=== PATIENT | female | born 1945 | race Caucasian/White ===

== ENCOUNTER → 2017-06-20 15:50 | Outpatient (CLI) | payer MEDICARE, OTHER | END | disposition home or self-care (01) | LOC: D.MRI 15:50 | DX: M25.561 Pain in right knee (principal) ==

== ENCOUNTER 2017-06-27 06:46 | Day surgery (SDC) | payer MEDICARE, OTHER ==
[2017-06-26 13:54] LABS: HEMOGLOBIN 13.5 g/dL (12-16); MCH 29.9 pg (26.0-34.0); MCHC 32.1 g/dL (31.0-37.0); MCV 93.1 fL (80.0-100.0); RBC 4.51 10x6/uL (4.00-5.40); RDW 14.2 % (11.5-14.5); WBC 8.3 10x3/uL (4.8-10.8)
[2017-06-26 14:12] LABS: ANION GAP 10.2 mmol/L (8-16); CALCIUM 8.9 mg/dL (8.5-10.1); CARBON DIOXIDE 30.5 mmol/L (21.0-32.0); CREATININE - SERUM 0.9 mg/dL (0.6-1.3); POTASSIUM - SERUM 3.7 mmol/L (3.5-5.1)
[~2017-06-27] VITALS: Ht 165.1 cm; Wt 75.8 kg
[~2017-06-27 06:46] MED LIST: CELEXA20 MG PO; LANTUS INSULIN10 ML SC; LIPITOR40 MG PO; LISINOPRIL5 MG PO; NAPROSYN500 MG PO; NEURONTIN600 MG PO; NOVOLOG100 U/M1 SC; PEPCID20 MG PO
[2017-06-27 09:21] VITALS: BP 152/65; Ht 165.1 cm; Wt 75.8 kg
[2017-06-27] MEDS ORDERED: BAYER CHEWABLE81 MG PO (09:21)
[2017-06-27] MEDS ORDERED: NUCYNTA50 MG PO (14:46)
--- NOTE | 2017-06-27 14:52 | NUR ---
RECEVIEVED PT FROM OR WITH THOMAS WRAP TO RT KNEE AND ARCHANA BRYANT.
--- NOTE | 2017-06-27 19:32 | NUR ---
1600 IV DC WITH CATHER TIP INTACT
--- NOTE | 2017-06-30 08:17 | OP ---
PATIENT NAME: GEOVANNY MITCHELL MEDICAL RECORD: [id number] :47 LOCATION:[facility] ADMISSION DATE: SURGEON: VAN WANG DO DATE OF OPERATION: 06/27/2017 PROCEDURE PERFORMED: Right knee arthroscopy with partial medial and partial lateral meniscectomies as well as patella abrasion chondroplasty, medial femoral condyle chondroplasty. PREOPERATIVE DIAGNOSES: Right knee pain with medial and lateral meniscal tears and chondromalacia. POSTOPERATIVE DIAGNOSES: Right knee pain with medial and lateral meniscal tears and chondromalacia as well as medial femoral condyle chondromalacia and patellar chondromalacia grade II. INDICATIONS: Ms. Mitchell is a 72-year-old female, who presented to my office some time ago complaining of continued right knee pain. We attempted an injection. She called back a week later and said that did not help and we ordered an MRI. She had symptoms of catching and locking, especially going up and down stairs and these did not get better. An MRI was ordered, which showed meniscal tears and some degenerative joint disease. We had a long discussion with her in the office explaining that due to her degenerative joint disease or osteoarthritis and the scope may not help her completely, but due to her symptoms, she said she would like to try to see if she can get some improvement from it. After this, the patient was consented for the surgery. SURGEON: Van Wang DO. ESTATE PLANNING ATTORNEY: Enriqueta Kelly, advanced nurse practitioner. DESCRIPTION OF PROCEDURE: The patient was taken to the operative suite, placed in supine position, was given general anesthetic. A timeout was performed indicating the correct site, side and the patient and she was given a gram of Ancef preoperatively. She is then prepped and draped in sterile fashion and the portal sites were injected with 4 mL of 0.5% Marcaine with epinephrine on the medial and lateral portals, being 8 mL total. The lateral portal was then established first with an 11-blade scalpel entering the joint, the trocar was placed into the suprapatellar pouch and then camera was placed into the suprapatellar pouch as well as some loose bodies were seen there, likely cartilage from the patella. The care was then taken down the lateral gutter and no loose bodies seen there. The medial gutter was inspected as well and no loose bodies. The medial compartment was then entered and noted to have some meniscal tear on the posterior third to the middle third of the medial meniscus. Meniscus was probed and seemed to be stable at the posterior horn. The tears were trimmed out and appeared to be degenerative tears and then the chondroplasty was performed on the medial femoral condyle as a grade II chondromalacia was noted at that site. The ACL was then probed and seen to be stable. The probe was then stuck into the posterior knee. Posterior medial and posterior lateral knee and the leg was kept into puzeot-ld-niim position and the lateral compartment was entered with the camera, known have some meniscal fraying and tears on the lateral meniscus and the middle third anterior third of the lateral meniscus. This was trimmed out with a biter and shaver and probed including the posterior horn and seemed to be very stable. Attention was then drawn to the patella. The knee was placed in extended position and the patella OPERATIVE REPORT [id number] GEOVANNY MITCHELL was cleaned up. The loose cartilage was cleaned up with a shaver performing the chondroplasty. The camera was then taken out of the knee and excess fluid was suctioned out of the knee and the portal sites were closed with 4-0 Monocryl in an inverted interrupted fashion. Steri-Strips Adaptic, 4 x 4, ABD, Webril and Morteza wrap were then placed over the knee and a ARCHANA hose was placed up to the knee itself. The patient was awakened in stable condition and taken to PACU for recovery. Her blood loss was minimal. TRANSINT:[id number] Voice Confirmation ID: [id number] DOCUMENT ID: [id number] VAN WANG DO at 0817 CC: [id number] DICTATION DATE: 06/27/17 1457 ALL AROUND PRESSER: 06/27/17 2200 [facility] 06/27/17 [facility] [address] [place] [address]
== END 2017-06-27 16:30 | disposition home or self-care (01) ==
LOC: D.OPS 06:46 → D.PAN 10:00 → D.OPS 16:30
PROVIDERS: Anesthesiology
DX: S83.281A Other tear of lateral meniscus, current injury, right knee, initial encounter (principal); S83.241A Other tear of medial meniscus, current injury, right knee, initial encounter; M22.41 Chondromalacia patellae, right knee; I10 Essential (primary) hypertension; J44.9 Chronic obstructive pulmonary disease, unspecified; E11.9 Type 2 diabetes mellitus without complications; Z01.812 Encounter for preprocedural laboratory examination

== ENCOUNTER → 2017-07-22 08:13 | Outpatient (CLI) | payer MEDICARE, OTHER ==
[2017-06-27 09:21] VITALS: BMI 27.8
[~2017-07-22 08:13] MED LIST changes: +BAYER CHEWABLE81 MG PO; +NUCYNTA50 MG PO
== END | disposition home or self-care (01) ==
LOC: D.CT 08:13
DX: R91.8 Other nonspecific abnormal finding of lung field (principal)

== ENCOUNTER → 2018-09-17 13:56 | Outpatient (CLI) | payer MEDICARE, OTHER ==
[2017-06-27 09:21] VITALS: BMI 27.8
== END | disposition home or self-care (01) ==
LOC: D.CT 13:56
DX: R91.8 Other nonspecific abnormal finding of lung field (principal)

== ENCOUNTER 2018-11-13 05:20 | Day surgery (SDC) | payer MEDICARE, OTHER ==
[2018-11-12 09:33] LABS: HEMATOCRIT 38.2 % (36.0-48.0); HEMOGLOBIN 12.7 g/dL (12-16); MCH 29.8 pg (26.0-34.0); MCHC 33.2 g/dL (31.0-37.0); MCV 89.7 fL (80.0-100.0); MEAN PLATELET VOLUME 9.1 fL (7.4-10.4); RBC 4.26 10x6/uL (4.00-5.40); RDW 14.1 % (11.5-14.5); WBC 6.8 10x3/uL (4.8-10.8)
[2018-11-12 09:38] LABS: CALC OSMOLALITY 291 mosm/kg (275-300); CALCIUM 8.1 mg/dL (8.5-10.1); CARBON DIOXIDE 24.3 mmol/L (21.0-32.0); CHLORIDE - SERUM 108 mmol/L (98-107); CREATININE - SERUM 0.8 mg/dL (0.6-1.3); GLUCOSE 204 mg/dL (74-106); POTASSIUM - SERUM 4.6 mmol/L (3.5-5.1); SODIUM 142 mmol/L (136-145); UREA NITROGEN 21 mg/dL (7-18); eGFR NON AFRICAN AMERICAN 75 mL/min (90-120)
[~2018-11-13] VITALS: Ht 165.1 cm; Wt 73.9 kg
[~2018-11-13 05:20] MED LIST changes: +MERIBIN5 MG PO; +VITAMIN E1000 UNI1 PO
[2018-11-13 06:58] VITALS: BP 148/71; Ht 165.1 cm; Wt 73.9 kg
[2018-11-13] MEDS ORDERED: ULTRAM50 MG PO (10:21)
[2018-11-13] MEDS ORDERED: DURICEF500 MG PO (10:22)
--- NOTE | 2018-11-13 13:58 | OP ---
PATIENT NAME: GEOVANNY MITCHELL SATNAM MEDICAL RECORD: [id number] :47 LOCATION:[facility] ADMISSION DATE: SURGEON: VAN WANG DO DATE OF OPERATION: 11/13/2018 PROCEDURE PERFORMED: Right thumb CMC arthroplasty. PREOPERATIVE DIAGNOSIS: End-stage right thumb CMC arthritis. POSTOPERATIVE DIAGNOSIS: End-stage right thumb CMC arthritis. INDICATIONS: Ms. Mitchell is a 73-year-old female who presented to my office complaining for quite some time a complaint of right thumb pain with pinching and gripping and had positive grind test. She tried injections and bracing for quite some time. This, however, got to the point where it did not help and she was tired of affecting her activities of daily living and wanted something done surgically. I informed her of the risks and benefits of the procedure including damage to the radial sensory nerve, need for further surgery, infection, bleeding and she was okay with that and signed the consent. SURGEON: Van Wang DO TOLL TESTBOARD WORKER: Marcos Sidhu. DESCRIPTION OF PROCEDURE: The patient was taken to the operative suite, laid in supine position. Right upper extremity was prepped and draped in sterile fashion. Prior to prep and drape, she was given 2 grams of Ancef preoperatively. It was then prepped and draped. A timeout was performed and everyone was in agreement with the correct side, site, patient and procedure. The right upper extremity was then exsanguinated with an Esmarch and then the tourniquet was inflated to 250 mmHg and was up for 60 minutes. The incision then began over the thumb CMC on the radial side of the thumb. Careful dissection was made down to the CMC joint. The capsule was then opened and cleared off the trapezium and the proximal part of the metacarpal of the thumb. An incision was then made over the second metacarpal and down to the bone and then soft tissue was protected and then the wire was passed from the second metacarpal to the base of the first metacarpal and then the suture TightRope with the button was passed through that and then tied down. Once we got appropriately tight and tied, the trapezium was removed and x-rays were taken to assure that appropriate spot of the thumb lining up with the other metacarpals and indeed was in good spot. The tourniquet was then let down and bleeding was coagulated at that time and the capsule was closed with 2-0 Vicryl in simple fashion. The skin over that incision was closed with 5-0 Monocryl, first in inverted interrupted and then ran on the skin and the incision over the second metacarpal was closed with 5-0 nylon in a horizontal mattress fashion. The Steri-Strips were placed over the incision over the thumb CMC and then Adaptic, 4 x 4, Webril was placed over the hand and thumb and the patient was placed in a thumb spica splint, secured with 4-inch Morteza wrap. She was awakened and taken to recovery in stable condition. TRANSINT:[id number] Voice Confirmation ID: [id number] DOCUMENT ID: [id number] OPERATIVE REPORT [id number] GEOVANNY MITCHELL MICHAEL D, DO at 1358 CC: [id number] DICTATION DATE: 11/13/18 1027 SPECIALIST WOUND CARE: 11/13/[address] [facility] [address] [place] [address]
== END 2018-11-13 12:50 | disposition home or self-care (01) ==
LOC: D.OPS 05:20 → D.PAN 08:15 → D.OPS 08:15
PROVIDERS: Anesthesiology
DX: M18.11 Unilateral primary osteoarthritis of first carpometacarpal joint, right hand (principal); Z01.812 Encounter for preprocedural laboratory examination

== ENCOUNTER 2019-02-05 07:44 | Day surgery (SDC) | payer MEDICARE, OTHER ==
[~2019-02-05] VITALS: Ht 165.1 cm; Wt 73.9 kg
[~2019-02-05 07:44] MED LIST changes: +DURICEF500 MG PO; +ULTRAM50 MG PO
[2019-02-05 08:14] LABS: HEMATOCRIT 40.2 % (36.0-48.0); HEMOGLOBIN 13.1 g/dL (12-16); MCH 29.1 pg (26.0-34.0); MCHC 32.6 g/dL (31.0-37.0); MCV 89.3 fL (80.0-100.0); MEAN PLATELET VOLUME 10.6 fL (7.4-10.4); RBC 4.5 10x6/uL (4.00-5.40); RDW 14.2 % (11.5-14.5); WBC 7.4 10x3/uL (4.8-10.8)
[2019-02-05 08:23] LABS: ANION GAP 12.7 mmol/L (8-16); CALCIUM 8.5 mg/dL (8.5-10.1); CARBON DIOXIDE 25.8 mmol/L (21.0-32.0); CREATININE - SERUM 0.9 mg/dL (0.6-1.3); POTASSIUM - SERUM 4.5 mmol/L (3.5-5.1)
[2019-02-05] MEDS ORDERED: BASAGLAR K100 UNIT/1 SC (08:29)
[2019-02-05 08:39] VITALS: BP 120/70; Ht 165.1 cm; Wt 73.9 kg
[2019-02-05] MEDS ORDERED: DURICEF500 MG PO (10:26)
--- NOTE | 2019-02-05 12:00 | NUR ---
PATIENT AMBULATING AROUND ROOM WITHOUT UNSTEADINESS OR DIZZINESS. LEFT HAND PIV DC'D WITH TIP INTACT. PATIENT DRESSING IN PERSONAL CLOTHING WITH DAUGHTER'S ASSISTANCE
--- NOTE | 2019-02-05 12:15 | NUR ---
DISCHARGE INSTRUCTIONS REVIEWED WITH PATIENT AND FAMILY. DISCHARGED HOME VIA WHEELCHAIR TO PRIVATE VEHICLE WITH SON
--- NOTE | 2019-02-05 14:24 | OP ---
PATIENT NAME: GEOVANNY MITCHELL APRIL MEDICAL RECORD: [id number] :47 [facility] ADMISSION DATE: SURGEON: VAN WANG DO DATE OF OPERATION: 02/05/2019 PROCEDURE PERFORMED: Right ring and middle A1 gerard release. PREOPERATIVE DIAGNOSIS: Right ring and middle trigger finger. POSTOPERATIVE DIAGNOSIS: Right ring and middle trigger finger. INDICATIONS: Ms. Mitchell is a 73-year-old right hand dominant female who has had triggering in her right ring and middle finger for quite some time. She had an injection a couple months ago, which did help a little, but did not completely help. She is tired of dealing with it and wanted it released. I informed her of the risks and benefits of the procedure including infection, bleeding, damage to nerves and vessels, numbness in the hand. She is okay with that and wanted the surgery done. She signed the consent. SURGEON: Van Wang DO DESCRIPTION OF PROCEDURE: The patient was taken to the operative suite, laid supine position, given general anesthetic, 2 grams Ancef. LMA was placed. The right upper extremity was prepped and draped in sterile fashion with tourniquet above the elbow under the drapes. A time out was performed. Everyone was in agreement of the correct side, site, patient and procedure. The right upper extremity was then exsanguinated with the Esmarch and tourniquet was inflated to 250 mmHg, and was up for 12 minutes. Once the tourniquet was inflated and time-out had been performed, the incision began in the distal palmar crease in line with the middle and ring fingers. Incision was made with 15 blade scalpel and then careful dissection bluntly was made down with a Ragnells first with the ring finger to the A1 gerard. This was released with a goodnews bay blade and then completed more distally with scissors. The flexor tendon was then pulled out through the incision to ensure there was no locking or catching. Then, the same thing was repeated on the middle finger. The A1 gerard was released and then more distally as well. The tourniquet was then let down at 12 minutes and the incision was closed with 5-0 nylon in a horizontal mattress fashion. It was then dressed with Adaptic, 4 x 4s, Kerlix and Coban was lightly wrapped on the hand. She was awakened and taken to recovery in stable condition. BLOOD LOSS: Minimal. COMPLICATIONS: None. TOURNIQUET TIME: 12 minutes. TRANSINT:[id number] Voice Confirmation ID: [id number] DOCUMENT ID: [id number] OPERATIVE REPORT [id number] GEOVANNY MITCHELL MICHAEL D, DO at 1424 CC: [id number] DICTATION DATE: 02/05/19 1029 MISSION ANALYST: 02/05/19 1145 [address] [facility] [id number] [place] [address]
== END 2019-02-05 12:15 | disposition home or self-care (01) ==
LOC: D.OPS 07:44 → D.PAN 09:00 → D.OPS 10:00 → D.PAN 10:35 → D.OPS 12:15
PROVIDERS: Anesthesiology; ATTEND Orthopaedic Surgery
DX: M65.341 Trigger finger, right ring finger (principal); M65.331 Trigger finger, right middle finger; Z01.812 Encounter for preprocedural laboratory examination

== ENCOUNTER 2019-10-15 09:21 | Day surgery (SDC) | payer MEDICARE, OTHER ==
[~2019-10-15] VITALS: Ht 165.1 cm; Wt 79.4 kg
[~2019-10-15 09:21] MED LIST changes: +BASAGLAR K100 UNIT/1 SC
[2019-10-15 09:59] LABS: HEMATOCRIT 42.6 % (36.0-48.0); HEMOGLOBIN 13.7 g/dL (12-16); MCH 29.4 pg (26.0-34.0); MCHC 32.2 g/dL (31.0-37.0); MCV 91.4 fL (80.0-100.0); MEAN PLATELET VOLUME 9.8 fL (7.4-10.4); RBC 4.66 10x6/uL (4.00-5.40); WBC 8.1 10x3/uL (4.8-10.8)
[2019-10-15 10:01] LABS: POTASSIUM - SERUM 4.4 mmol/L (3.5-5.1)
[2019-10-15 10:34] VITALS: BP 131/62; Ht 165.1 cm; Wt 79.4 kg
[2019-10-15 11:06] LABS: CALCIUM 9.1 mg/dL (8.5-10.1); CARBON DIOXIDE 26.4 mmol/L (21.0-32.0); CREATININE - SERUM 0.9 mg/dL (0.6-1.3)
[2019-10-15] MEDS ORDERED: DURICEF500 MG PO (13:09)
[2019-10-15] MEDS ORDERED: ULTRAM50 MG PO (13:09)
--- NOTE | 2019-10-15 15:05 | NUR ---
1452-DISCHARGE CRITERIA MET. REMOVED IV WITH CATH INTACT,DISPOSED INTO SHARPS,COVERED SITE WITH GUAZE,SECURED WITH MEDIPORE TAPE. REVIEWED POST OPERATIVE INSTRUCTIONS AND FOLLOW UP APPOINTMENT. VERBALIZED UNDERSTANDING. DRESSING TO LEFT HAND CDI,CAP REFILL WNL. SKIN WARM TO TOUCH.
--- NOTE | 2019-10-15 15:08 | NUR ---
1455-ESCORTED OUT VIA W/C WITH SON AWAITING TO DRIVE HOME.DISCHARGE PAPERWORK IN HAND
--- NOTE | 2019-10-16 07:23 | OP ---
PATIENT NAME: GEOVANNY MITCHELL SATNAM MEDICAL RECORD: [id number] :47 [facility] ADMISSION DATE: SURGEON: VAN WANG DO DATE OF OPERATION: 10/15/2019 PROCEDURE PERFORMED: Left middle, SMALL, ring and thumb trigger finger release or A1 gerard release. PREOPERATIVE DIAGNOSIS: Left thumb, middle, SMALL and ring trigger finger. POSTOPERATIVE DIAGNOSIS: Left thumb, middle, SMALL and ring trigger finger. INDICATIONS: Ms. Mitchell is a 74-year-old female who has had this trigger finger for quite some time. She is tired dealing with this and has had injections in the past and other ones that did not work and she wanted something done surgically as she did not have great david in an injection. I informed her of the risks including infection, bleeding, damage to nerves and vessels, need for further surgery, continued pain and contracture of the palm. She was aware of those risks and signed the consent. SURGEON: Van Wang DO DESCRIPTION OF PROCEDURE: The patient was taken to the operative suite, laid in supine position, given a gram of Ancef preoperatively and then the patient was sedated and LMA was placed. The left upper extremity was then prepped and draped in sterile fashion. Timeout was performed. Everyone was in agreeance with the correct side, site, patient and procedure. We then began by exsanguinating the left upper extremity with an Esmarch. Tourniquet was inflated to 250 mmHg, was up for 15 minutes. The incision began over the thumb A1 gerard and careful dissection was made down to the A1 gerard and it was released. On showing good release, the flexor tendon of the thumb was pulled out through the incision. The incision was then made at the distal crease of the palm all the way from the middle to the small finger and careful dissection was made down to each of the A1 pulleys and were sequentially released from the middle ring to the small finger with a pickup and scissors, ensuring good release. Dissection was made bluntly after the initial skin incision with a Ragnell. The site was then injected with 0.25% Marcaine with epinephrine 10 mL around that and thumb and the tourniquet was deflated. Any bleeding was coagulated with a pickup and a Bovie. The skin was then closed with 5-0 Monocryl in a horizontal mattress fashion and she was dressed with Adaptic, 4 x 4s, Kerlix and a Coban lightly wrapped on the hand. She was awakened and taken to recovery in stable condition. Blood loss was approximately 20 mL. COMPLICATIONS: None. TRANSINT:[id number] Voice Confirmation ID: [id number] DOCUMENT ID: [id number] OPERATIVE REPORT [id number] GEOVANNY MITCHELL MICHAEL D, DO at 0723 CC: [id number] DICTATION DATE: 10/15/19 1306 SOLUTION COORDINATOR: 10/15/19 1505 [facility] 10/15/19 [facility] [address] [place] [address]
== END 2019-10-15 14:55 | disposition home or self-care (01) ==
LOC: D.OPS 09:21 → D.PAN 11:15 → D.OPS 11:30 → D.PAN 11:30 → D.OPS 14:55
PROVIDERS: Anesthesiology; ATTEND Orthopaedic Surgery
DX: M65.312 Trigger thumb, left thumb (principal); M65.332 Trigger finger, left middle finger; M65.342 Trigger finger, left ring finger; M65.352 Trigger finger, left little finger; J44.9 Chronic obstructive pulmonary disease, unspecified

== ENCOUNTER 2020-01-29 13:46 | Emergency (ER) | payer MEDICARE, OTHER ==
[~2020-01-29] VITALS: Ht 165.1 cm; Wt 78.6 kg
[2020-01-29 13:55] VITALS: Ht 165.1 cm; Wt 78.6 kg
[2020-01-29 14:21] LABS: BASOPHILS 0.3 % (0-2); EOSINOPHILS 0.8 % (0-7); HEMATOCRIT 41.3 % (36.0-48.0); HEMOGLOBIN 13.1 g/dL (12-16); IMMATURE GRANULOCYTES 0.2 % (0-5); LYMPHOCYTES 13.5 % (15-50); MCH 28.9 pg (26.0-34.0); MCHC 31.7 g/dL (31.0-37.0); MCV 91.2 fL (80.0-100.0); MEAN PLATELET VOLUME 9.9 fL (7.4-10.4); MONOCYTES 6.2 % (2-11); PLATELET COUNT 223 10x3/uL (130-400); RBC 4.53 10x6/uL (4.00-5.40); RDW 13.9 % (11.5-14.5); WBC 10.6 10x3/uL (4.8-10.8)
[2020-01-29 14:30] LABS: ANION GAP 13.2 mmol/L (8-16); APTT 30.7 SECONDS (22.8-39.4); CALCIUM 8.8 mg/dL (8.5-10.1); CARBON DIOXIDE 24.1 mmol/L (21.0-32.0); CREATININE - SERUM 1.1 mg/dL (0.6-1.3); INR 1.1 (0.85-1.17); POTASSIUM - SERUM 4.3 mmol/L (3.5-5.1); PROTIME 14.2 SECONDS (11.6-15.0)
[2020-01-29 14:31] LABS: D-DIMER-QUANTITATIVE 2.87 ug/mLFEU (0.20-0.54)
[2020-01-29 14:36] LABS: ALBUMIN 3.4 g/dL (3.4-5.0); BILIRUBIN - TOTAL 0.79 mg/dL (0.2-1.3)
[2020-01-29] MEDS ORDERED: ELIQUIS5 MG PO (15:57)
[2020-01-29 16:08] VITALS: BP 124/84
== END 2020-01-29 16:10 ==
LOC: D.ER 13:46
PROVIDERS: Family Medicine
DX: I82.412 Acute embolism and thrombosis of left femoral vein (principal); E11.40 Type 2 diabetes mellitus with diabetic neuropathy, unspecified; Z79.4 Long term (current) use of insulin; I10 Essential (primary) hypertension; J44.9 Chronic obstructive pulmonary disease, unspecified

== ENCOUNTER → 2020-07-11 10:26 | Outpatient (CLI) | payer MEDICARE, OTHER ==
[2020-01-29 13:55] VITALS: BMI 28.8
[~2020-07-11 10:26] MED LIST changes: +ELIQUIS5 MG PO
[2020-07-11 12:27] LABS: BASOPHILS 0.4 % (0-2); EOSINOPHILS 1.2 % (0-7); HEMATOCRIT 40.8 % (36.0-48.0); HEMOGLOBIN 12.9 g/dL (12-16); IMMATURE GRANULOCYTES 0.1 % (0-5); LYMPHOCYTES 25.4 % (15-50); MCH 28.5 pg (26.0-34.0); MCHC 31.6 g/dL (31.0-37.0); MCV 90.1 fL (80.0-100.0); MEAN PLATELET VOLUME 10.7 fL (7.4-10.4); MONOCYTES 4.4 % (2-11); NEUTROPHILS 68.5 % (40-80); PLATELET COUNT 235 10x3/uL (130-400); RBC 4.53 10x6/uL (4.00-5.40); RDW 14.1 % (11.5-14.5); WBC 6.8 10x3/uL (4.8-10.8)
[2020-07-11 12:45] LABS: ALBUMIN 3.6 g/dL (3.4-5.0); ANION GAP 13.3 mmol/L (8-16); BILIRUBIN - TOTAL 0.42 mg/dL (0.2-1.3); CALCIUM 8.6 mg/dL (8.5-10.1); POTASSIUM - SERUM 4.3 mmol/L (3.5-5.1); PROTEIN - SERUM 7.1 g/dL (6.4-8.2); THYROID STIMULATING HORMONE 0.68 uIU/mL (0.36-3.74)
[2020-07-13 11:12] LABS: PROTEIN S - FREE 68 % (57-157); PROTEIN S - FUNCTIONAL 74 % (63-140); PROTEIN S - TOTAL 92 % (60-150)
[2020-07-13 12:11] LABS: ANTITHROMBIN III ACTIVITY 143 % (75-135)
== END | disposition home or self-care (01) ==
LOC: D.LAB 10:26
PROVIDERS: ATTEND Internal Medicine Hematology & Oncology
DX: I82.402 Acute embolism and thrombosis of unspecified deep veins of left lower extremity (principal); R80.9 Proteinuria, unspecified; J44.9 Chronic obstructive pulmonary disease, unspecified; E78.2 Mixed hyperlipidemia